=== PATIENT | female | born 1990 | race Caucasian/White ===

== ENCOUNTER 2018-12-25 14:46 | Emergency (ER) | payer BC ==
[~2018-12-25] VITALS: Ht 177.8 cm; Wt 97.7 kg
[~2018-12-25 14:46] MED LIST: NO HOME MEDICATIONS
[2018-12-25 14:56] VITALS: TEMP 99.1
[2018-12-25 15:22] LABS: BASO # 0.1 (0.0-0.2); BASO % 0.8 % (0.0-2.0); EOS # 0.2 (0.0-0.7); EOS % 1.9 % (0-4.0); GRAN # 7.7 (1.4-6.5); GRAN % 68.5 % (42.2-75.2); HEMATOCRIT 40.4 % (37.0-47.0); HEMOGLOBIN 13.7 g/dl (12.5-16.0); LYMPH # 2.5 (1.2-3.4); LYMPH % 22.2 % (20.0-51.0); MEAN CELL VOLUME 93 fl (80.0-100.0); MEAN CORPUSCULAR HEMOGLOBIN 31 pg (27.0-31.0); MEAN CORPUSCULAR HGB CONC 34 g/dl (33.0-37.0); MEAN PLATELET VOLUME 10.1 fl (7.4-10.4); MONO # 0.7 (0.1-0.6); MONO % 6.3 % (1.7-9.3); PLATELET COUNT 233 K/mm3 (130-400); RED BLOOD COUNT 4.36 M/mm3 (4.10-5.30); REDCELL DISTRIBUTION WIDTH-CV 12.2 % (11.5-14.5)
[2018-12-25 15:36] LABS: ALBUMIN 4.2 gm/dL (3.5-5.0); BILIRUBIN,TOTAL 0.5 mg/dL (0.0-1.0); CALCIUM 9.3 mg/dL (8.4-10.2); CREATININE, serum 0.73 (0.52-1.25); POTASSIUM 4.1 mmol/L (3.4-5.0); TOTAL PROTEIN 7.5 gm/dL (6.4-8.2)
[2018-12-25 16:55] LABS: COLLECTION METHOD CLEAN CATCH
[2018-12-25 17:07] LABS: MUCOUS Present /lpf; PH 5 (5-8); SQUAMOUS EPITHELIAL 0-2 /hpf; URINE APPEARANCE Clear; URINE BACTERIA None Seen /hpf; URINE BILIRUBIN Negative (NEGATIVE); URINE BLOOD 3+ (NEGATIVE); URINE COLOR Yellow; URINE GLUCOSE Negative (NEGATIVE); URINE KETONE 2+ (NEGATIVE); URINE LEUKOCYTE ESTERASE Negative (NEGATIVE); URINE NITRATE Negative (NEGATIVE); URINE PROTEIN(semi-quant) Negative (NEGATIVE); URINE UROBILINOGEN Negative (NEGATIVE)
[2018-12-25 20:38] VITALS: BP 119/74; PULSE 67
== END 2018-12-25 20:34 | disposition home or self-care (01) ==
LOC: COL.ER 14:46
PROVIDERS: Emergency Medicine
DX: O20.0 Threatened abortion (principal); Z3A.01 Less than 8 weeks gestation of pregnancy
CPT/HCPCS: J2791; J7030

== ENCOUNTER 2019-08-14 23:42 | Outpatient (CLI) | payer BC ==
[~2019-08-14] VITALS: Ht 175.3 cm; Wt 116.8 kg
--- NOTE | 2019-08-14 23:50 | NUR ---
G1 at 38 weeks and 5 days arrives to unit with complaint of contractions every 5-7 minutes apart. Pt reports contractions started around 1500, tried to take a bath and contractions felt better but then returned once she was out. Pt denies LOF or vaginal bleeding. Pt denies headaches, blurry vision, or RUQ pain. Pt oriented to room, bed in low and locked position, call light within reach. US and toco explained and applied. Plan of care reviewed with patient and spouse. BOB /-3
[2019-08-15 00:15] VITALS: BP 129/71; PULSE 87; TEMP 97.9
[2019-08-15] MEDS ORDERED: PRENATAL MVI (00:21)
[2019-08-15] MEDS ORDERED: TYLENOL PM EXTR1 TA1 PO (00:23)
--- NOTE | 2019-08-15 01:00 | NUR ---
SVE unchanged over 1 hour. Discussed plan of care with patient. Dr. Lawrence notified, see physician notification.
--- NOTE | 2019-08-15 01:20 | NUR ---
Pt discharged home at this time. Discharge instructions reviewed with patient and spouse, verbalized understanding. Return precautions reviewed. Pt seen ambulating off unit with spouse.
[2019-08-16] MEDS ORDERED: IBU600 MG PO (07:46)
== END 2019-08-15 01:20 | disposition home or self-care (01) ==
LOC: LDRO 23:42 → LDR 08-15 00:17 → LDRO 08-15 01:20
DX: O62.9 Abnormality of forces of labor, unspecified (principal); Z3A.38 38 weeks gestation of pregnancy
CPT/HCPCS: OP

== ENCOUNTER 2019-08-15 04:02 | Inpatient (IN) | payer BC ==
[~2019-08-15] VITALS: Ht 175.3 cm; Wt 116.8 kg
[2019-08-15] VITALS (44 sets, daily range): BP systolic 101–142; BP diastolic 54–88; PULSE 75–110; TEMP 97.4–98.6
[~2019-08-15 04:02] MED LIST changes: +PRENATAL MVI; +TYLENOL PM EXTR1 TA1 PO
--- NOTE | 2019-08-15 04:05 | NUR ---
G1 at 38 weeks and 6 days arrives to unit with complaint of contractions. Pt was recently discharged as labor check around 0120. Pt reports she went home and took tylenol PM and took a warm bath and contractions have gotten worse. Pt visibly in pain with contractions but breathing through them well. Pt oriented to room, bed in low and locked position, call light within reach. Clean gown on. US and toco explained and applied. Plan of care reviewed with patient and spouse. SVE /-3, bloody show on exam glove.
--- NOTE | 2019-08-15 05:13 | NUR ---
SVE unchanged over 1 hour. /-3, bloody show on exam glove. Pt visibly hurting with contractions. Discussed different coping mechanisms. See physician notification.
--- NOTE | 2019-08-15 07:00 | NUR ---
Pt sitting upright for epidural placement. Difficulty tracing FHR due to maternal position. RN at bedside adjusting monitors. FHR audible.
--- NOTE | 2019-08-15 07:30 | NUR ---
Dr. Hernandez on unit. Reviews FHR strip. No new orders at this time. 0815-AROM performed by Dr. Hernandez. Clear fluid. SVE /2. Pericare performed. Updated on POC. Safety reviewed. No questions or concerns at this time. 0817-Variable deceleration noted after AROM. Provider on unit. Reviewes strip. No new orders at this time.
[2019-08-15 07:48] LABS: HEMOGLOBIN 11.7 g/dl (12.5-16.0); MEAN CELL VOLUME 89 fl (80.0-100.0); MEAN CORPUSCULAR HEMOGLOBIN 28 pg (27.0-31.0); MEAN CORPUSCULAR HGB CONC 32 g/dl (33.0-37.0); MEAN PLATELET VOLUME 11.5 fl (7.4-10.4); PLATELET COUNT 230 K/mm3 (130-400); RED BLOOD COUNT 4.14 M/mm3 (4.10-5.30)
[2019-08-15 08:17] LABS: HEMATOCRIT 36.7 % (37.0-47.0)
[2019-08-15 09:55] LABS: BAND 34 % (0-10); LYMPHOCYTE 12 % (20.0-51.0); NEUTROPHILS 53 % (42.0-75.2); PLATELET ESTIMATE NORMAL (NORMAL)
--- NOTE | 2019-08-15 15:35 | NUR ---
SVE per this RN C/+1. Roles notified. See physician notification. 1540-Pt prepped for delivery. Coached on pushing efforts. 1550- Roles requested to unit for delivery. See physician notification. 1555- Roles at bedside. Begins pushing with pt. 1617- of viable female infant attended by Dr. Hernandez. Cord clamped x 2 and cut from umbilicus. Infant dried and placed on mother's abdomen. Care of to Nicole Arshad RN. Apgars 8/9/9. 1624- of placenta. Fundus firm at umbilicus. Bleeding WNL. Pitocin bolus infusing per protocol. Laceration repair performed by physician. Pericare performed. Ice pack applied. Bed locked in low position. Call light within reach. No questions or concerns at this time.
[2019-08-16] VITALS: BP 123/67; PULSE 92; TEMP 97.9
--- NOTE | 2019-08-16 | NUR ---
2300-Rhogam indicated. 0000- INT removed per patients request. Counseled on the need for Rhogam and patient elected to have INT removed and accepts Rhogam injection tomorrow 08/16/19. Updated docent coordinatorArianna.
[2019-08-16 04:00] VITALS: BP 121/69; PULSE 88; TEMP 98.1
[2019-08-16] MEDS ORDERED: IBU600 MG PO (07:46)
[2019-08-16 08:30] VITALS: BP 122/59; PULSE 79; TEMP 97.6
--- NOTE | 2019-08-16 11:01 | NUR ---
Initial visit; Patient thanked Or Assistant for offering congratulations and God's blessings for the of her daughter. Or Assistant thanked family for choosing [facility].
[2019-08-16 12:50] VITALS: BP 138/95; PULSE 106; TEMP 97.6
[2019-08-16 17:15] VITALS: BP 134/79; PULSE 92; TEMP 97.5
[2019-08-16 19:20] VITALS: BP 119/68; PULSE 86; TEMP 98
[2019-08-17 07:26] VITALS: BP 116/85; PULSE 81; TEMP 97.6
[2019-08-17] MEDS ORDERED: PERCOCET 325 MG1 TA2 PO (11:59)
== END 2019-08-17 15:00 | disposition home or self-care (01) | DRG 807 ==
LOC: LDRO 04:02 → LDR 04:25 → LDRO 06:46 → OB 06:46
PROVIDERS: ADMIT Obstetrics & Gynecology
PROC: 10E0XZZ Delivery of Products of Conception, External Approach (ICD-10-PCS; principal; 2019-08-15)
PROC: 0KQM0ZZ Repair Perineum Muscle, Open Approach (ICD-10-PCS; 2019-08-15)
PROC: 10907ZC Drainage of Amniotic Fluid, Therapeutic from Products of Conception, Via Natural or Artificial Opening (ICD-10-PCS; 2019-08-15)
DX: O69.1XX0 Labor and delivery complicated by cord around neck, with compression, not applicable or unspecified (principal); Z37.0 Single live birth; Z3A.38 38 weeks gestation of pregnancy; O70.1 Second degree perineal laceration during delivery
CPT/HCPCS: J2540; J2590; J2791; J2795; J7120